=== PATIENT | female | born 1990 ===

== ENCOUNTER 2016-11-03 09:45 | Outpatient (CLI) | payer MEDICAID | END 2016-11-03 09:46 | disposition home or self-care (01) | LOC: LABLEX 09:45 | PROVIDERS: ATTEND Nurse Practitioner | DX: Z12.4 Encounter for screening for malignant neoplasm of cervix (principal); Z00.00 Encounter for general adult medical examination without abnormal findings | CPT/HCPCS: 88142; G0123 ==